=== PATIENT | female | born 2000 | race African-American/Black ===

== ENCOUNTER 2021-07-08 13:14 | Emergency (ER) | payer OTHER, SELFPAY ==
[2021-07-08 13:15] VITALS: BP 119/86; PULSE 76; RESP 18; TEMP 36.4; O2SAT 100; BMI 27.4
--- NOTE | 2021-07-08 14:37 | EKG12_ITS ---
Test Reason : CP Blood Pressure : / mmHG Vent. Rate : 075 BPM Atrial Rate : 075 BPM P-R Int : 112 ms QRS Dur : 076 ms QT Int : 372 ms P-R-T Axes : 043 031 003 degrees QTc Int : 415 ms Normal sinus rhythm Normal ECG No previous ECGs available Confirmed by ATUL GRIGGS, JEFFY ([id number]), web content editor AYLEEN ROBINS ([id number]) on 07/15/2021 1:29:16 PM Referred By: MICHELLE Confirmed By:CATARINA POLLARD MD
[2021-07-08 14:50] LABS: Absolute Lymphocyte Count 2.71 X10^3/uL (0.83-4.51); Absolute Neutrophil Count 6.1 X10^3/uL (2.0-7.7); Basophil# 0.01 X10^3/uL; Basophil% 0.1 % (0-1); Eosinophil# 0.13 X10^3/uL; Eosinophils% 1.4 % (0-5); Hematocrit 41.4 % (37-47); Lymphocyte # 2.71 X10^3/ul (0.83-4.51); Lymphocyte % 28.4 % (19-41); Mean Corp Hgb Conc 33.8 g/dL (32-36); Mean Corpuscular Hgb 28.4 pg (27.0-32.0); Mean Platelet Vol. 10.9 fl (6.2-12.0); Monocyte# 0.58 X10^3/uL; Monocyte% 6.1 % (0-10); NRBC Flagged by Analyzer 0 % (0-5); Neutrophil # 6.08 X10^3/uL (2.7-7.7); Neutrophil % 63.7 % (47-70); Platelet Count 207 K/mm3 (150-450); RBC Distribution Width CV 13.7 % (11.6-14.6); RBC Distribution Width SD 42.4 fl (35.1-43.9); Red Blood Count 4.93 M/mm3 (4.2-5.4); White Blood Count 9.5 K/mm3 (4.4-11.0)
--- NOTE | 2021-07-08 14:55 | ED.VIS.CHEST ---
HPI History of Present Illness Chief Complaint: Chest Pain Detail of Chief Complaint: Chest pain since receiving Pfizer COVID-19 vaccine Informant: patient and parent Onset/Context/Timing Onset: Weeks Activity at onset: sudden Timing: Continuous and Waxes and wanes Quality: Positive for Aching and Dull Location: Substernal Current Severity: Mild Maximum Severity: Severe Worsened By: Exertion and - (Up right physician); Not Worsened By Movement of Arm, Movement of Torso, Eating, Palpation, Breathing and Coughing Relieved By: Nothing Associated Symptoms: Positive for Dyspnea; Negative for Nausea, Vomiting, Diaphoresis, Cough, Fever, Lightheadedness, Acid Reflux and Palpitations Narrative Narrative: Patient is a healthy 20-year-old with history of allergies who presents because of persistent chest pain after receiving Pfizer COVID-19 vaccine. She states the pain has increased and decreased in intensity but never is gone away. There was one short time. When she felt short of breath. She denies nausea, vomiting or diaphoresis. There is no radiation of the pain. There is a strong family history of blood clots. Patient is on hormonal therapy. She denies fever, chills night sweats. She denies rhinorrhea, congestion postnasal drainage. She denies sore throat. She denies ear pain or drainage from ears. She denies cough, dyspnea on exertion, orthopnea or PND. She denies leg pain, swelling or discoloration. Prior Similar Symptoms: No Recent Illness/Hospitalization: No CVD Risk Factors: Negative for Hypertension, Diabetes, Hypercholesterolemia, Family History 1' </=55 and Smoking PE Risk Factors: Negative for Recent Travel/Surgery, Recent Immobilization, Prior DVT or PE, Cancer and OCP + Smoking + >/=35 TAD Risk Factors: Negative for Marfan's Syndrome, Hypertension and Family History PFSH PFSH Allergy/AdvReac Type Severity Reaction Status Date / Time cat dander Allergy Hives Verified 07/08/21 13:20 grass pollen Allergy Hives Verified 07/08/21 13:20 methylphenidate Allergy PT UNSURE Verified 07/08/21 13:20 [From Concerta] OF REACTION mold Allergy Hives Verified 07/08/21 13:20 Penicillins Allergy Hives Verified 07/08/21 13:20 Sulfa (Sulfonamide Allergy Hives Verified 07/08/21 13:20 Antibiotics) DUST [place]ES Allergy Hives Uncoded 07/08/21 13:20 [place] 9 Allergy Rash Uncoded 07/08/21 13:20 Family History (Updated 07/08/21 @ 14:[address] Manny Shin MD) Other CAD (coronary artery disease) VTE (venous thromboembolism) Surgical History no surgical history no surgical history Social History (Updated 07/08/21 @ 14:[address] Manny Shin MD) household members: family Smoking Status: Never smoker substance use type: does not use ROS ROS ED Constitutional Constitutional ED: Reports chills; Denies fever(s), subjective, sweats or weight loss Eyes Eyes: Reports none ENT ENT ED: Denies ear pain, rhinorrhea or sore throat Cardiovascular Cardiovascular: Reports as per HPI; Denies orthopnea or paroxysmal nocturnal dyspnea Respiratory/Chest Respiratory/Chest: Reports dyspnea; Denies cough, dyspnea on exertion, orthopnea, paroxysmal nocturnal dyspnea or sputum Gastrointestinal Gastrointestinal: Denies abdominal pain, constipation, diarrhea, melena, nausea or vomiting Genitourinary Genitourinary ED: Denies dysuria, hematuria or urinary frequency Musculoskeletal Musculoskeletal: Denies arthralgias, back pain, myalgias or neck pain Integumentary Denies rash Neurologic Neurologic: Denies headache(s) or weakness Hematologic/Lymphatic Hematologic/Lymphatic: Denies easy bleeding or easy bruising EXAM Physical Exam Const Vital Signs: 07/08/21 13:15 07/08/21 14:56 07/08/21 15:15 Temperature 97.6 F L Temperature Source Temporal Pulse Rate 76 71 Respiratory Rate 18 20 H Blood Pressure 119/86 H 100/60 Blood Pressure Mean 97 73 Pulse Ox 100 100 100 Oxygen Delivery Method Room Air Room Air Room Air Positive well nourished and well developed General Appearance ED: well developed and NAD; Negative for pallor HEENT Reports TM's clear and moist mucous membranes HEENT Narrative: Ears appear normal. Nares patent. normocephalic and atraumatic Tympanic Membrane ED: Yes TM's clear Eyes PERRL and EOMs intact bilaterally General Eye ED: Negative for pale conjunctiva or scleral icterus Neck no lymphadenopathy, supple and no JVD Chest Wall palpation of chest normal Resp normal respiratory effort and clear to auscultation bilaterally Effort and Inspection: respiratory distress Cardio regular rate, regular rhythm, S1 normal heart sound and S2 normal heart sound GI normal to inspection, nondistended, normoactive bowel sounds Back/Spine no CVA tenderness and no thoracic nor lumbar tenderness Cervical Spine: Negative for cervical spine tenderness Extremity normal to inspection General Extremety ED: Negative for edema or tenderness General Extremity: Negative for edema Neuro oriented x3 and CN's II-XII intact bilaterally Sensorium / Orientation: awake and alert Psych mental status grossly normal Skin no rashes or lesions noted General Skin Exam: Negative for jaundice or pallor Heart Score History: Slightly/Non-Suspicious ECG: Normal Age: </= 45 years Risk Factors: 1 or 2 Risk Factors Score: 1 MDM MDM MDM Narrative Medical decision making narrative: Since patient is not PERC negative D-dimer was obtained. This may represent cardiac pathology i.e. pericarditis, myocarditis also need to evaluate for pulmonary embolus or GI etiology. Nurse protocol was initiated. Lab Data Attestation: I reviewed the patient's lab results. Lab results narrative: CBC, INR, basic metabolic panel, troponin and D-dimer are normal. A second troponin was not obtained since patient has had pain continuously for 2 weeks suspicion is low. Labs: Laboratory Results - last 24 hr 07/08/21 07/08/21 07/08/21 14:40 14:40 14:40 WBC 9.5 RBC 4.93 Hgb 14.0 Hct 41.4 MCV 84.0 MCH 28.4 MCHC 33.8 RDW Std Deviation 42.4 RDW Coeff of Ty 13.7 Plt Count 207 MPV 10.9 Immature Gran % (Auto) 0.300 Neut % (Auto) 63.7 Lymph % (Auto) 28.4 [place] % (Auto) 6.1 Eos % (Auto) 1.4 Baso % (Auto) 0.1 Absolute Neuts (auto) 6.1 Absolute Lymphs (auto) 2.71 Nucleated RBC % 0 PT 13.1 INR 1.1 D-Dimer Quant (PE/DVT) Sodium 136 Potassium 3.6 Chloride 107 Carbon Dioxide 24.0 Anion Gap 5 BUN 7 Creatinine 0.72 Estim Creat Clear Calc 108.52 Est GFR (MDRD) Af Amer 134 Est GFR (MDRD) Non-Af 111 BUN/Creatinine Ratio 9.8 L Glucose 110 H Calcium 9.1 Troponin I High Sens 6 07/08/21 14:40 WBC RBC Hgb Hct MCV MCH MCHC RDW Std Deviation RDW Coeff of Ty Plt Count MPV Immature Gran % (Auto) Neut % (Auto) Lymph % (Auto) [place] % (Auto) Eos % (Auto) Baso % (Auto) Absolute Neuts (auto) Absolute Lymphs (auto) Nucleated RBC % PT INR D-Dimer Quant (PE/DVT) 0.32 Sodium Potassium Chloride Carbon Dioxide Anion Gap BUN Creatinine Estim Creat Clear Calc Est GFR (MDRD) Af Amer Est GFR (MDRD) Non-Af BUN/Creatinine Ratio Glucose Calcium Troponin I High Sens Radiography Chest X-Ray - ED: 1 View and Read by ED Physician (Single view chest x-ray was interpreted by me at 05/30/2008. Cardiac silhouette size normal. Lung parenchyma normal. No evidence of pleural effusion or pneumothorax. [place] appears normal. [place] structures remarkable.) EKG Initial EKG: Attestation: I personally reviewed and interpreted this EKG as follows: Interpretation: Sinus Rhythm (Normal sinus rhythm with ventricular rate of 75. AL interval is 112 ms. QRS duration 76 ms. QT duration 372 ms. [place] is normal. The EKG is normal.) Discharge Plan Triage Chief Complaint: Chest Pain ED Provider: Manny Shin Dx/Rx/DC Orders Clinical Impression: Substernal chest pain, Adverse effect of COVID-19 vaccine Instructions: ED Chest Pain, Uncertain Cause, ED Drug Reaction, Other Primary Care Provider: Care Physician,No Primary Referrals: Care Physician,No Primary [Primary Care Provider] - Doctor,Your [STAFF PHYSICIAN] - Keep [facility] appointment Disposition Disposition: Home, Self Care
[2021-07-08 14:56] VITALS: O2SAT 100
[2021-07-08 15:01] LABS: International Normalized Ratio 1.1; Prothrombin Time (Protime)PT. 13.1 SECONDS (11.7-14.9)
[2021-07-08 15:08] LABS: Anion Gap 5 (5-15); BUN 7 mg/dL (7-18); BUN/Creat Ratio 9.8 RATIO (10-20); Calcium,Total 9.1 mg/dL (8.5-10.1); Chloride 107 mmol/L (98-107); Creatinine, Serum 0.72 mg/dL (0.55-1.02); EST Glomerular Filtration Rate 111 mL/min (>60); Est Glom Filt Rate - Afr Amer 134 mL/min (>60); Estimated Creatinine Clearance 108.52 ml/min; Glucose 110 mg/dL (74-106); Potassium 3.6 mmol/L (3.5-5.1); Sodium Level 136 mmol/L (136-145); Troponin-I HS 6 pg/mL (3.0-54.0)
[2021-07-08 15:13] LABS: D-Dimer Quantitative (DVT/PE) 0.32 FEU/ug/m (0.27-0.49)
[2021-07-08 15:15] VITALS: BP 100/60; PULSE 71; RESP 20; O2SAT 100
--- NOTE | 2021-07-08 16:04 | RAD_ITS ---
STUDY: X-RAY CHEST REASON FOR EXAM: Female, 20 years old. Chest pain TECHNIQUE: Single AP portable view of the chest. COMPARISON: None. FINDINGS: EKG leads overlie the chest The lungs are clear and expanded. There is no demonstrated pleural abnormality. Normal size heart. Normal mediastinum and brandon. Normal visualized pulmonary arteries. Normal visualized aortic arch and descending thoracic aorta. Normal visualized thoracic spine. Normal visualized ribs, clavicles, and shoulders. There is no demonstrated abnormality of the visualized soft tissue structures of the upper abdomen. RAD/Chest 1 View (Portable) IMPRESSION: Normal x-ray examination of the chest. Electronically Signed: German Moon MD at 16:15 EST ,
[2021-07-08 16:23] VITALS: BP 105/72; PULSE 76
== END 2021-07-08 16:24 | disposition home or self-care (01) ==
PROVIDERS: Emergency Provider Emergency Medicine; Visit Provider Emergency Medicine
DX: R07.2 Precordial pain (principal); R06.00 Dyspnea, unspecified; T50.B95A Adverse effect of other viral vaccines, initial encounter; Z79.890 Hormone replacement therapy
CPT/HCPCS: 71045; 80048; 84484; 85025; 85379; 85610; 93005; 99283; A4216

== ENCOUNTER 2022-10-09 16:42 | Emergency (ER) | payer OTHER, SELFPAY ==
[2022-10-09 16:43] VITALS: BP 143/89; PULSE 103; RESP 18; TEMP 36.1; O2SAT 97; BMI 27.2
--- NOTE | 2022-10-09 18:13 | EKG12_ITS ---
Test Reason : SYNCOPE Blood Pressure : / mmHG Vent. Rate : 071 BPM Atrial Rate : 071 BPM P-R Int : 118 ms QRS Dur : 074 ms QT Int : 398 ms P-R-T Axes : 033 038 009 degrees QTc Int : 432 ms Normal sinus rhythm with sinus arrhythmia Normal ECG Confirmed by SANDRA GRIGGS, IGGY ([id number]), society editor AYLEEN ROBINS ([id number]) on 10/10/2022 8:53:40 AM Referred By: Confirmed By:IGGY FLORES MD
--- NOTE | 2022-10-09 18:28 | EX.ED.DYSGE1 ---
HPI History of Present Illness Chief Complaint: Syncope PFSH PFSH Allergy/AdvReac Type Severity Reaction Status Date / Time cat dander Allergy Hives Verified 07/08/21 13:20 grass pollen Allergy Hives Verified 07/08/21 13:20 house dust mite Allergy Hives Verified 12/10/21 16:23 methylphenidate Allergy PT UNSURE Verified 07/08/21 13:20 [From Concerta] OF REACTION minoxidil Allergy Rash Verified 12/10/21 16:23 mold Allergy Hives Verified 07/08/21 13:20 Penicillins Allergy Hives Verified 07/08/21 13:20 Sulfa (Sulfonamide Allergy Hives Verified 07/08/21 13:20 Antibiotics) Family History (Updated 07/08/21 @ 14:[address] Manny Shin MD) Other CAD (coronary artery disease) VTE (venous thromboembolism) Social History (Updated 07/08/21 @ 14:[address] Manny Shin MD) household members: family Smoking Status: Never smoker substance use type: does not use EXAM Physical Exam Const Vital Signs: 10/09/22 16:43 Temperature 97 F L Temperature Source Temporal Pulse Rate 103 H Respiratory Rate 18 Blood Pressure 143/89 H Blood Pressure Mean 107 Pulse Ox 97 Oxygen Delivery Method Room Air MDM MDM MDM Narrative Medical decision making narrative: HISTORY OF PRESENT ILLNESS: 22-year-old female here for passing out. States she passed out prior to arrival. States he has been sleeping well. States that computer training today. States she got up from lying down and exiting so she woke up in the [place]. She notes she felt lightheaded, flushed prior to passing out. States she has passed out one other time in the past. She denies any family history of early cardiac . Denies any structural heart disease. She denies any significant headache, chest pain, abdominal pain, shortness of breath. The patient denies recent surgery in the last 4 weeks or immobilization in the last 3 days, denies previous diagnosis of DVT or PE, hemoptysis, unilateral leg swelling or malignancy with treatment the last 6 months. No estrogen use noted. Patient denies sudden onset of pain, no tearing sensation, no migratory symptoms, no new numbness, weakness or loss of sensation. Patient denies family history or personal history of Marfan syndrome or Constance-Danlos. Patient denies sudden onset or thunderclap headache, denies maximal intensity within 1 minute, vomiting, neck pain or stiffness, changes in vision, fever, history malignancy, syncope, seizures. REVIEW OF SYSTEMS: Pertinent positives: Syncope Pertinent negatives: Palpitations, focal weakness, shortness of breath, abdominal pain, vomiting PHYSICAL EXAM: Nursing triage notes reviewed, Vital signs reviewed Constitutional: please see mdm HENT: MMM Eyes: Pupils equal round and reactive to light, Extraocular muscles intact Neck: No stridor, no JVD, full neck ROM Lungs: Clear to auscultation, No wheezing or rales. No increased work of breathing, no conversational dyspnea, no accessory muscle use, no nasal flaring. No respiratory distress noted Heart: Regular rate and rhythm, No murmurs, No rubs and No gallops, 2+ distal pulses (radial, femoral, posterior tibial) in all extremities Abdomen: Soft, there is no tenderness, rigidity, rebound or guarding, no obvious peritoneal signs, no palpable pulsatile abdominal masses, no auscultated abdominal bruit : No CVAT Extremities: No edema Neuro: No focal neurological deficits, cranial nerves II through XII intact, 5/5 strength in all extremities. Intact sensation to light touch in all extremities, 2+ reflexes bilateral patella tendons. Normal gait. No ataxia. Skin: No rash or lesions noted MEDICAL DECISION MAKING: Chief Complaint: Syncope External records reviewed: No recent cardiac catheterizations, stress test or echocardiograms noted in the chart [facility] Narrative: Patient was hemodynamically stable, afebrile, nontoxic-appearing. I considered the following differential diagnosis: Arrhythmia, anemia, electrolyte abnormalities, ICH, subarachnoid hemorrhage, ectopic , PE, aortic dissection The patient's history and physical exam was not consistent with PE with a low risk Wells score. She had no historical factors or physical exam findings such as pulse deficits or focal neurologic deficits to suggest aortic dissection. She had no bleeding diathesis to suggest anemia. No vomiting diarrhea or other report of volume loss to suggest electrolyte abnormalities. She had no abdominal pain to suggest ectopic . She had a nonfocal neurologic logic exam and this was not suggestive of subarachnoid hemorrhage or ICH. Patient's history is most consistent with vasovagal syncope. She felt warm flushed had no prodromal symptoms. EKG showed no evidence of arrhythmia or myocardial ischemia. Per [facility] clinical policy, [place] syncope rules patient is low risk. Patient would not benefit from further testing, imaging or ED observation. She was instructed to follow with her primary care physician for further outpatient testing including Holter monitor and echocardiogram. Factors affecting care: None Social determinants of health: None History obtained from others: None Shared decision making: I will have a discussion with the patient and or visitors regarding risk/benefits of further testing or admission. They will be made aware of of the risk/benefits inherent in this decision they will be given the opportunity to voice understanding. Consults: none Discharge Plan Triage Chief Complaint: Syncope ED Provider: Baljeet Vernon Dx/Rx/DC Orders Clinical Impression: Vasovagal syncope Instructions: Causes of Syncope Stand Alone Forms: ED Work / School Excuse Primary Care Provider: Care Physician,No Primary Referrals: Care Physician,No Primary [Primary Care Provider] - Activity Restrictions/Additional Instructions: Thank you for trusting us with your care today! Please take Tylenol (2 pills, 650 mg), ibuprofen (2 pills, 400 mg) every 6 hours as needed for pain and fever control. Please return to the emergency department if your symptoms change or worsen. Please follow with your primary care physician for further outpatient evaluation and management. Specifically to obtain outpatient Holter monitoring and/or echocardiogram. Disposition Disposition: Home, Self Care
== END 2022-10-09 19:35 | disposition home or self-care (01) ==
PROVIDERS: Emergency Provider Emergency Medicine; Visit Provider Emergency Medicine
DX: R55 Syncope and collapse (principal)
CPT/HCPCS: 93005; 99282

== ENCOUNTER 2022-10-13 08:19 | Emergency (ER) | payer OTHER, SELFPAY ==
[2022-10-13 08:20] VITALS: BP 115/82; PULSE 84; RESP 18; TEMP 36.6; O2SAT 98; BMI 27.6
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
[2022-10-13 09:39] LABS: Absolute Lymphocyte Count 2.16 X10^3/uL (0.83-4.51); Basophil# 0.02 X10^3/uL; Basophil% 0.2 % (0-1); Eosinophils% 4.3 % (0-5); Hemoglobin 13.8 g/dL (12.0-15.0); Lymphocyte # 2.16 X10^3/ul (0.83-4.51); Lymphocyte % 23.3 % (19-41); Mean Corp Hgb Conc 32.9 g/dL (32-36); Mean Corpuscular Hgb 28.3 pg (27.0-32.0); Mean Corpuscular Volume 86.1 fL (81-99); Mean Platelet Vol. 11.5 fl (6.2-12.0); Monocyte# 0.61 X10^3/uL; Monocyte% 6.6 % (0-10); NRBC Flagged by Analyzer 0 % (0-5); Neutrophil # 6.04 X10^3/uL (2.7-7.7); Neutrophil % 65.1 % (47-70); Platelet Count 221 K/mm3 (150-450); RBC Distribution Width CV 14.9 % (11.6-14.6); Red Blood Count 4.88 M/mm3 (4.2-5.4); White Blood Count 9.3 K/mm3 (4.4-11.0)
[2022-10-13 09:46] LABS: Internal QC Validated? YES +Cl - CLEAR BKGD; Pregnancy, Serum, hCG Quali. NEGATIVE Negative
[2022-10-13] MEDS: 0.9% Normal Saline 1,000 ML 999 ML IV (09:55)
[2022-10-13] MEDS: Ketorolac 15 MG/ML Vial IV (09:55)
[2022-10-13 09:57] LABS: AST(SGOT) 22 U/L (15-37); Alanine Aminotransfer ALT/SGPT 27 U/L (13-56); Albumin, Serum 3.4 g/dL (3.2-5.0); Alkaline Phosphatase 63 U/L (45-117); Anion Gap 6 (5-15); BUN 7 mg/dL (7-18); BUN/Creat Ratio 11.7 RATIO (10-20); Bilirubin, Direct 0.14 mg/dL (0.00-0.30); Calcium,Total 8.8 mg/dL (8.5-10.1); Chloride 108 mmol/L (98-107); EST Glomerular Filtration Rate 134 mL/min (>60); Est Glom Filt Rate - Afr Amer 162 mL/min (>60); Estimated Creatinine Clearance 133.46 ml/min; Globulin 3.8 g/dL (2.2-4.2); Glucose 85 mg/dL (74-106); Potassium 3.7 mmol/L (3.5-5.1); Protein, Total 7.2 g/dL (6.4-8.2); Sodium Level 139 mmol/L (136-145); Troponin-I HS 14 pg/mL (3.0-54.0)
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
--- NOTE | 2022-10-13 10:20 | CT_ITS ---
STUDY: CTA CHEST REASON FOR EXAM: Female, 22 years old. Atypical chest pain RADIATION DOSAGE (If Supplied By Facility): CTDIvol = ( 13.88 ) mGy, DLP = ( 435.03 ) mGycm TECHNIQUE: The examination was performed with the intravenous administration of 100ML OF [place]OVUE 370. Post-processing of the angiographic images was performed, with multiplanar reformation and 3D reconstruction. Individualized dose optimization techniques were used for this CT. COMPARISON: None. FINDINGS: Normal enhancement of the main pulmonary artery and right and left pulmonary arteries. Normal enhancement of the bilateral peripheral pulmonary arteries. There is no demonstrated pulmonary embolism. Normal thoracic aorta and visualized great vessels. There is no demonstrated aortic dissection. Normal heart and pericardium. Normal mediastinum. Normal hilar regions. Normal visualized trachea and bronchi. The lungs are well expanded. Normal pulmonary parenchyma. Normal pleura. Normal chest wall structures. Normal osseous structures. Normal visualized upper abdomen. CT/CTA Chest W/WO Contrast IMPRESSION: Normal CTA chest examination, without a demonstrated pulmonary embolism or arterial dissection. Electronically Signed: German Moon MD at 10:43 EDT ,
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
[2022-10-13 10:58] VITALS: BP 109/74; PULSE 70; RESP 14; O2SAT 100
[2022-10-13 11:24] LABS: Bacteria 0 SEEN /hpf (None Seen); Mucous, Urine 0 SEEN /hpf (<or=2+); Red Blood Cells-Urine 0 SEEN /hpf (0-5); Squamous Epithelial Cells - UA 0 SEEN /hpf (5-10); White Blood Cells 0 SEEN /hpf (0-5)
[2022-10-13 11:26] LABS: Color, Urine Yellow (Yellow); Glucose, Dipstick Normal (Normal); Ketone-Dipstick Negative (Negative); Leukocyte Esterase-Dipstick Negative /ul (Negative); Nitrite-Dipstick Negative (Negative); Occult Blood-Urine 25 /ul (Negative); Protein-Dipstick Negative (Negative); Urine Bilirubin Dipstick Negative (Negative); Urine Clarity Clear (Clear); Urine Urobilinogen Normal (Normal)
[2022-10-13 11:37] LABS: Amphetamine Urine VISTA NEGATIVE (<1000 ng/mL); Barbiturate Urine VISTA NEGATIVE (< 200 ng/mL); Benzodiazepine Urine VISTA NEGATIVE (< 200 ng/mL); Cocaine Urine VISTA NEGATIVE (< 300 ng/mL); Ecstacy Urine VISTA NEGATIVE (< 500 ng/mL); Methadone Urine VISTA NEGATIVE (< 300 ng/mL); PCP Urine VISTA NEGATIVE (< 25 ng/mL); THC Urine VISTA NEGATIVE (< 50 ng/mL); Vista UDS pH Range 6
[2022-10-13 12:00] VITALS: BP 110/70; PULSE 70; RESP 15; O2SAT 98
[2022-10-13 13:08] VITALS: BP 110/70; PULSE 82; RESP 17; O2SAT 95
== END 2022-10-13 13:09 | disposition home or self-care (01) ==
PROVIDERS: Emergency Provider Emergency Medicine; Visit Provider Emergency Medicine
DX: S09.90XA Unspecified injury of head, initial encounter (principal); F07.81 Postconcussional syndrome; F17.290 Nicotine dependence, other tobacco product, uncomplicated; S20.211A Contusion of right front wall of thorax, initial encounter; S10.93XA Contusion of unspecified part of neck, initial encounter; R55 Syncope and collapse; V47.5XXA Car driver injured in collision with fixed or stationary object in traffic accident, initial encounter
CPT/HCPCS: 70450; 71275; 72125; 80048; 80076; 80307; 81001; 84484; 84703; 85025; 93005; 96361; 96374; 99283; Q9967

== ENCOUNTER → 2023-03-06 | Outpatient (CLI) | payer OTHER, SELFPAY ==
--- NOTE | 2023-03-06 06:56 | MRI_ITS ---
STUDY: MRI BRAIN WITHOUT CONTRAST REASON FOR EXAM: Female, 22 years old. LOSS OF CONSCIOUSNESS TECHNIQUE: Standardized multiplanar fat and water weighted pulse sequences were obtained. COMPARISON: CT October 13, 2022 FINDINGS: Normal size of the ventricles and extra-axial spaces for the patient''s age. Normal white matter tracts of the supratentorial brain. There is no evidence for recent intracranial ischemia or other cause of cytotoxic edema on diffusion weighted imaging (DWI). Normal T2* images of the brain without demonstrated susceptibility artifact. There is no demonstrated hemosiderin stain. Normal bilateral basal ganglia. Normal thalami. There is no extra-axial fluid accumulation. Normal flow voids within the major intracranial circulation suggesting patency by spin echo criteria. Normal sella turcica, pituitary gland, infundibular stalk, optic chiasm and hypothalamus. Normal tectal plate and pineal gland. Normal midbrain, jessica and medulla. Normal cerebellum. Normal basal cisterns. Normal bilateral temporal bones. Normal bilateral internal auditory canals. No demonstrated orbital abnormality, within the constraints of a routine brain study. Normal visualized paranasal sinuses. Normal calvarium and skull base. Normal visualized soft tissue structures. Normal visualized upper cervical spine. MRI/Brain without Contrast IMPRESSION: Normal unenhanced MRI of the brain. Electronically Signed: Osman Fritz MD at 11:18 EDT ,
== END | disposition home or self-care (01) ==
PROVIDERS: Referring Provider Psychiatry & Neurology Neurology; Visit Provider Psychiatry & Neurology Neurology
DX: R55 Syncope and collapse (principal)
CPT/HCPCS: 70551